=== PATIENT | male | born 1950 | race Asian ===

== ENCOUNTER 2020-01-24 09:55 | Emergency (ER) | payer SELFPAY ==
[~2020-01-24] VITALS: Ht 172.7 cm; Wt 81.0 kg
[2020-01-24 10:19] LABS: BASOPHILS % 0.9 % (0.0-2.0); EOSINOPHILS % 2.4 % (0.0-5.0); HEMATOCRIT. 38.9 % (42.0-52.0); HEMOGLOBIN. 12.7 g/dL (14.0-18.0); LYMPHOCYTES % 36.8 % (20.0-50.0); MEAN CORPUSCULAR HEMOGLOBIN 28.6 pg (28.0-32.0); MEAN CORPUSCULAR VOLUME 87.6 fL (80.0-94.0); MEAN PLATELET VOLUME 6.9 fl (7.4-10.4); MONOCYTES % 12.5 % (2.0-8.0); NEUTROPHILS % 47.4 % (40.0-76.0); PLATELET 250 x1000/uL (130-400); RED BLOOD CELL COUNT 4.44 mill/uL (4.7-6.1); RED CELL DISTRIBUTION WIDTH 16.2 % (11.6-14.6)
[2020-01-24 10:25] LABS: CHLORIDE 110 mEq/L (98-107)
[2020-01-24 10:29] LABS: ETHANOL BLOOD < 10 mg/dL; INR 0.9; PROTHROMBIN TIME 9.9 sec (9.6-11.0)
[2020-01-24 10:32] LABS: LDL CHOLESTEROL 59 mg/dL (5-100)
[2020-01-24] MEDS ORDERED: ASPIRIN 325MG EC TABLET PO ONE (11:15)
[2020-01-24] MEDS ORDERED: ACETAMINOPHEN WITH CODEINE 300/30MG TABLET PO ONE (14:15)
[2020-01-24] MEDS ORDERED: CLONIDINE 0.1MG TABLET PO PRN (18:00)
[2020-01-24] MEDS ORDERED: ONDANSETRON HCL 4MG/2ML INJ IV PRN (18:00)
[2020-01-24] MEDS ORDERED: ACETAMINOPHEN 325MG TABLET PO PRN ×2 (18:00)
[2020-01-24] MEDS ORDERED: ZOLPIDEM TARTRATE 5MG TABLET PO PRN (18:00)
[2020-01-24] MEDS ORDERED: MAGNESIUM/ALUMINUM HYDROXIDE/SIMETHICONE 30ML UDC PO PRN (18:00)
[2020-01-24] MEDS ORDERED: GUAIFENESIN 200MG/10ML SUGAR FREE UDC PO PRN (18:00)
[2020-01-24 19:14] LABS: CLARITY URINE CLEAR (CLEAR); COLOR URINE YELLOW (YELLOW); KETONES URINE NEGATIVE (NEGATIVE); LEUKOCYTE ESTERASE URINE NEGATIVE (NEGATIVE); NITRITE URINE NEGATIVE (NEGATIVE); OCCULT BLOOD URINE NEGATIVE (NEGATIVE); PROTEIN URINE NEGATIVE (NEGATIVE); SPECIFIC GRAVITY URINE 1.012 (1.005-1.030); UROBILINOGEN URINE 0.2 E.U./dL (0.2-1.0)
[2020-01-24 19:36] LABS: *AMPHETAMINES SCREEN URINE NEGATIVE (NEGATIVE); *BARBITURATES SCREEN URINE NEGATIVE (NEGATIVE)
[2020-01-24 19:37] LABS: *BENZODIAZEPINES SCREEN URINE NEGATIVE (NEGATIVE); *COCAINE SCREEN URINE NEGATIVE (NEGATIVE); CANNABINOID URINE SCREEN NEGATIVE (NEGATIVE); METHADONE URINE SCREEN NEGATIVE (NEGATIVE); OPIATES URINE SCREEN PRESUMTIVE POSITIVE (NEGATIVE); PHENCYCLIDINE URINE SCREEN NEGATIVE (NEGATIVE)
[2020-01-24 20:12] VITALS: BP 168/103
[2020-01-24] MEDS ORDERED: AMLODIPINE 2.5MG TABLET PO SCH (21:00)
[2020-01-24] MEDS ORDERED: SODIUM CHLORIDE 0.9% INJ 3ML FLUSH IVF SCH (22:00)
[2020-01-25] MEDS ORDERED: ASPIRIN 81MG EC TABLET PO SCH (09:00)
== END 2020-01-24 20:56 | disposition left against medical advice (07) ==
LOC: ER 09:55 → EDBEDREQSVC 10:11 → EDBEDREQTM 11:44 → EDBEDREQ 11:44 → EDBEDREQTM 14:16 → ER 20:56 → CANBEDREQ 01-25 06:58
DX: G93.49 Other encephalopathy (principal); R53.1 Weakness; R42 Dizziness and giddiness; R55 Syncope and collapse; I10 Essential (primary) hypertension; Z91.041 Radiographic dye allergy status
CPT/HCPCS: 36415; 70551; 71045; 73030; 80053; 80305; 80320; 81003; 82962; 83721; 84484; 85025; 93005; 99291; G0480